=== PATIENT | female | born 1960 | race African-American/Black ===

== ENCOUNTER 2017-10-27 04:00 | Emergency (ER) | payer MEDICAID ==
[~2017-10-27] VITALS: Ht 162.6 cm; Wt 46.2 kg
[~2017-10-27 04:00] MED LIST: CEFD300C37 PO; DOXY100T PO; FERR325T5 PO; FOLI-17 PO; GABA300C10 PO; GLIP5TAB10 PO; GUAI-106 PO; INSU100I13 SQ-INSULIN; LISI2.5T PO; METF500T4 PO; OMEP-110 PO; OMEP20CA14 PO
[2017-10-27] MEDS ORDERED: DIPHENHYDRAMINE 50 MG/ML, 1ML IM ONE (05:00)
[2017-10-27] MEDS ORDERED: METOCLOPRAMIDE 10MG TABLET PO ONE (05:00)
[2017-10-27] MEDS ORDERED: METOCLOPRAMIDE 10MG TABLET ONE (05:06)
[2017-10-27] MEDS ORDERED: DIPHENHYDRAMINE 50 MG/ML, 1ML ONE (05:06)
[2017-10-27 06:42] VITALS: BP 112/86
== END 2017-10-27 07:11 | disposition home or self-care (01) ==
LOC: ED 05:11
DX: R51 Headache (principal); H53.149 Visual discomfort, unspecified; F17.200 Nicotine dependence, unspecified, uncomplicated; Z85.038 Personal history of other malignant neoplasm of large intestine; Z85.43 Personal history of malignant neoplasm of ovary
CPT/HCPCS: 70450; 96372; 99284; J1200

== ENCOUNTER 2018-05-10 08:17 | Emergency (ER) | payer MEDICAID ==
[~2018-05-10] VITALS: Ht 165.1 cm; Wt 42.8 kg
[~2018-05-10 08:17] MED LIST changes: +METF500T17 PO; -METF500T4 PO
[2018-05-10] MEDS ORDERED: ONDANSETRON 2MG/ML, 2ML ONE (08:51)
[2018-05-10] MEDS ORDERED: FAMOTIDINE 20 MG/2 ML ONE (08:52)
[2018-05-10 09:43] LABS: ALBUMIN 4.2 g/dL (3.4-5.0); ANION GAP 12 mmol/L (5-15); CHLORIDE 98 mmol/L (98-107)
[2018-05-10 09:46] LABS: MEAN CORPUSCULAR HEMOGLOBIN 24.6 pg (27.0-34.8); MEAN CORPUSCULAR HGB CONC 32.7 g/dL (32.4-35.8); MEAN CORPUSCULAR VOLUME 75.4 fL (80-100); MEAN PLATELET VOLUME 8.7 fL (7.4-10.4); PLATELET COUNT 262 x10^3/uL (130-400); RED BLOOD COUNT 5.75 x10^6/uL (3.82-5.3); RED CELL DISTRIBUTION WIDTH 14.4 % (9.6-15.2)
[2018-05-10 09:48] LABS: BASOPHILS # (AUTO) 0.03 x10^3/uL (0-0.1); BASOPHILS % (AUTO) 0 % (0-1); EOSINOPHILS # (AUTO) 0.03 x10^3/uL (0-0.4); EOSINOPHILS % (AUTO) 1 % (1-7); LYMPHOCYTES # (AUTO) 1.79 x10^3/uL (1-3.4); LYMPHOCYTES % (AUTO) 27 % (22-44); MD SCAN; MONOCYTES # (AUTO) 0.58 x10^3/uL (0.2-0.8); MONOCYTES % (AUTO) 9 % (2-9); NEUTROPHILS # (AUTO) 4.27 x10^3/uL (1.8-6.8); NEUTROPHILS % (AUTO) 64 % (42-75)
[2018-05-10 09:49] LABS: ALANINE AMINOTRANSFERASE 29 U/L (12-78); ALKALINE PHOSPHATASE 72 U/L (45-117); CREATININE 0.91 mg/dL (0.55-1.02); TOTAL PROTEIN 8.6 g/dL (6.4-8.2); TROPONIN I < 0.015 ng/mL (0.000-0.045)
[2018-05-10] MEDS ORDERED: SODIUM CHLORIDE 0.9% 1,000ML IVBOLUS ONE (10:00)
[2018-05-10] MEDS ORDERED: SODIUM CHLORIDE FLUSH 10ML SYR IVF ONE (10:00)
[2018-05-10] MEDS ORDERED: FAMOTIDINE 20 MG/2 ML IVP ONE (10:00)
[2018-05-10] MEDS ORDERED: ONDANSETRON 2MG/ML, 2ML IVPush ONE (10:00)
[2018-05-10] MEDS ORDERED: MAALOX/HYOSCYAMINE/LIDOCAINE 45 ML BTL ONE (10:41)
[2018-05-10 10:57] LABS: MICROSCOPIC INDICATED
[2018-05-10] MEDS ORDERED: MAALOX/HYOSCYAMINE/LIDOCAINE 45 ML BTL PO ONE (11:00)
[2018-05-10 11:11] LABS: CULTURE INDICATED? NO
[2018-05-10] MEDS ORDERED: OMNIPAQUE 350 MG/ML, 100ML BOTTLE ONE (11:50)
[2018-05-10 12:02] VITALS: BP 111/68
== END 2018-05-10 12:58 | disposition home or self-care (01) ==
LOC: ED 09:10
DX: K29.00 Acute gastritis without bleeding (principal); I10 Essential (primary) hypertension; E11.9 Type 2 diabetes mellitus without complications
CPT/HCPCS: 36415; 74022; 74177; 80053; 81001; 83690; 84484; 85025; 93005; 96361; 96374; 96375; 99285; J2405; J7030; Q9967; S0028

== ENCOUNTER 2019-01-22 09:52 | Observation (INO) | payer MEDICAID ==
[~2019-01-22] VITALS: Ht 162.6 cm; Wt 48.5 kg
[2019-01-22] MEDS ORDERED: SUMA100T4 PO (10:24)
[2019-01-22] MEDS ORDERED: CITA20TA6 PO (10:24)
[2019-01-22] MEDS ORDERED: ASPI-496 PO (10:24)
[2019-01-22] MEDS ORDERED: GLIP5TAB10 PO (10:24)
--- NOTE | 2019-01-22 10:24 | NUR ---
PT C/O CP DESCRIBED A PRESSURE SINCE SUNDAY WITH ONE EPISODE OF VOMTTING ON SUNDAY. PT DENIES NAUSEA NOW AND CP IS BETTER COMPARED TO SUNDAY. PAIN INCREASES WITH BREATHING. PT DENIES RECENT TRAVEL. PT ON MONITOR. WAITING FOR MD ORDERS.
[2019-01-22] MEDS ORDERED: ASPIRIN 81 MG TABLET CHEW ONE (10:29)
[2019-01-22] MEDS ORDERED: ASPIRIN 81 MG TABLET CHEW PO ONE (10:30)
[2019-01-22 11:30] LABS: MEAN CORPUSCULAR HEMOGLOBIN 24.2 pg (27.0-34.8); MEAN CORPUSCULAR HGB CONC 30.9 g/dL (32.4-35.8); MEAN CORPUSCULAR VOLUME 78.4 fL (80-100); MEAN PLATELET VOLUME 8.6 fL (7.4-10.4); PLATELET COUNT 234 x10^3/uL (130-400); RED BLOOD COUNT 5.08 x10^6/uL (3.82-5.3); RED CELL DISTRIBUTION WIDTH 15.9 % (9.6-15.2)
[2019-01-22 11:31] LABS: ALBUMIN 3.5 g/dL (3.4-5.0); ANION GAP 4 mmol/L (5-15); CALCIUM 9.5 mg/dL (8.5-10.1); CHLORIDE 108 mmol/L (98-107)
--- NOTE | 2019-01-22 11:36 | NUR ---
3 P'S ADDRESSED. PT ON TELEPHONE IN THE ROOM. DENIES ANY NEEDS AT THIS TIME. WAITING FOR LAB RESULTS.
[2019-01-22 11:37] LABS: ALANINE AMINOTRANSFERASE 33 U/L (12-78); ALKALINE PHOSPHATASE 56 U/L (45-117); BILIRUBIN,TOTAL 0.3 mg/dL (0.2-1.0); TOTAL PROTEIN 7.1 g/dL (6.4-8.2); TROPONIN I < 0.015 ng/mL (0.000-0.045)
[2019-01-22 11:39] LABS: MD YES
[2019-01-22 11:41] LABS: <PLATELET ESTIMATE> ADEQUATE; ANISOCYTOSIS 1+; EOS#(MANUAL) 0.16 x10^3/uL (0.0-0.4); EOS% (MANUAL) 3 % (1-7); HYPOCHROMIA 1+; LARGE PLATELETS 1+; LYMPH#(MANUAL) 1.98 x10^3/uL (1-3.4); LYMPHS% (MANUAL) 38 % (22-44); MICROCYTOSIS 1+; MONOS#(MANUAL) 0.26 x10^3/uL (0.3-2.7); MONOS% (MANUAL) 5 % (2-9); SEG#(MANUAL) 2.81 x10^3/uL (1.8-6.8); SEGS% (MANUAL) 54 % (42-75); TARGET CELLS 1+
--- NOTE | 2019-01-22 11:43 | NUR ---
CHART UP FOR MD RECHECK. PT AWARE.
--- NOTE | 2019-01-22 12:29 | NUR ---
HOSPITLIST AT BEDSIDE. WAITING FOR BED.
[2019-01-22] MEDS ORDERED: SODIUM CHLORIDE FLUSH 10ML SYR IVF PRN (12:30)
[2019-01-22] MEDS ORDERED: SODIUM CHLORIDE FLUSH 10ML SYR IVF ONE (12:30)
[2019-01-22] MEDS ORDERED: FAMO-79 PO (12:48)
[2019-01-22] MEDS ORDERED: ACETAMINOPHEN 325 MG TABLET PO PRN (13:00)
[2019-01-22] MEDS ORDERED: NITROGLYCERIN 0.4 MG/SPRAY SL PRN (13:00)
[2019-01-22] MEDS ORDERED: morphine SULFATE 10 MG/ML, 1ML IV PRN (13:00)
[2019-01-22] MEDS ORDERED: DEXTROSE 50%, 50ML SYRINGE IVPush PRN (13:00)
[2019-01-22] MEDS ORDERED: BACLOFEN 10 MG TABLET PO PRN (13:00)
[2019-01-22] MEDS ORDERED: DEXTROSE 4 GM TAB.CHEW PO PRN (13:00)
[2019-01-22] MEDS ORDERED: GLUCAGON 1 MG IM PRN (13:00)
[2019-01-22] MEDS ORDERED: NITROGLYCERIN 0.4 MG BOTTLE (25 TABS) SL PRN (13:00)
[2019-01-22] MEDS ORDERED: LIDODERM 5% PATCH TD SCH (13:00)
[2019-01-22] MEDS ORDERED: LIDODERM 5% PATCH TD ONE (13:04)
--- NOTE | 2019-01-22 13:24 | NUR ---
PT MEDICATED PER MD ORDER WITH LIDOCAUINE PATCH. PT UPDATED ON POC AND POSSIBLE LONG STAY IN THE ER DUE TO TELE BEING FULL.
[2019-01-22 13:51] LABS: CHOL/HDL RATIO 2.3
--- NOTE | 2019-01-22 14:24 | NUR ---
HOSPITAL BED REQUESTED. PT UPDATED AGAIN ON POC. VSS
--- NOTE | 2019-01-22 14:36 | NUR ---
PT PLACED ON HOSPITAL BED. STILL WAITING FOR ROOM ON TELE. PT REPORTS SOME PAIN RELIEF WITH LIDODERM PATCH.
[2019-01-22 15:25] VITALS: BP 127/75
[2019-01-22] MEDS ORDERED: MAALOX/HYOSCYAMINE/LIDOCAINE 45 ML BTL PO PRN (16:00)
[2019-01-22] MEDS ORDERED: SUMATRIPTAN 100 MG TABLET PO PRN (16:00)
[2019-01-22] MEDS: INSULIN LISPRO 100 UNITS/ML, PEN SQ-INSULIN SCH ×2 (16:45→22:34)
[2019-01-22] MEDS: GABAPENTIN 300 MG CAPSULE PO SCH ×2 (16:46→21:40)
[2019-01-22] MEDS: PANTOPRAZOLE 20MG TABLET PO SCH (16:46)
[2019-01-22 18:32] LABS: TROPONIN I < 0.015 ng/mL (0.000-0.045)
[2019-01-22 20:22] VITALS: BP 126/80
[2019-01-22] MEDS ORDERED: GABAPENTIN 300 MG CAPSULE PO PRN (21:00)
[2019-01-22] MEDS: SODIUM CHLORIDE FLUSH 10ML SYR IVF SCH ×2 (21:00)
[2019-01-23 01:20] LABS: TROPONIN I < 0.015 ng/mL (0.000-0.045)
[2019-01-23 01:48] VITALS: BP 139/87
[2019-01-23] MEDS ORDERED: ASPIRIN 325 MG TABLET EC PO SCH (06:00)
[2019-01-23] MEDS: PANTOPRAZOLE 20MG TABLET PO SCH (06:00)
[2019-01-23 06:10] LABS: ANION GAP 5 mmol/L (5-15); CALCIUM 9.2 mg/dL (8.5-10.1); CHLORIDE 107 mmol/L (98-107)
[2019-01-23 06:13] LABS: CREATININE 0.66 mg/dL (0.55-1.02)
[2019-01-23] MEDS: GABAPENTIN 300 MG CAPSULE PO SCH (07:55)
[2019-01-23] MEDS: SODIUM CHLORIDE FLUSH 10ML SYR IVF SCH ×2 (07:56)
[2019-01-23 08:03] VITALS: BP 146/69
[2019-01-23] MEDS: INSULIN LISPRO 100 UNITS/ML, PEN SQ-INSULIN SCH ×2 (08:44→11:47)
[2019-01-23] MEDS ORDERED: LISINOPRIL 5 MG TABLET PO SCH (09:00)
[2019-01-23] MEDS ORDERED: FOLIC ACID 1 MG TABLET PO SCH (09:00)
[2019-01-23] MEDS ORDERED: CITALOPRAM 20 MG TABLET PO SCH (09:00)
[2019-01-23] MEDS ORDERED: FERROUS SULFATE 325 MG TABLET PO SCH (09:00)
[2019-01-23] MEDS ORDERED: POTASSIUM CHLORIDE 20 MEQ TAB.ER.PRT PO ONE (09:30)
== END 2019-01-23 12:35 | disposition home or self-care (01) ==
LOC: ED 12:33 → EDIP 12:36 → ED 12:38 → 5SO 15:27 → DCLOUNGE 01-23 12:34
PROVIDERS: ADMIT Hospitalist; ATTEND Hospitalist
DX: R07.89 Other chest pain (principal); I10 Essential (primary) hypertension; E11.9 Type 2 diabetes mellitus without complications; R00.2 Palpitations; R05 Cough; F17.210 Nicotine dependence, cigarettes, uncomplicated; Z85.89 Personal history of malignant neoplasm of other organs and systems; Z85.038 Personal history of other malignant neoplasm of large intestine; Z85.43 Personal history of malignant neoplasm of ovary; Z79.82 Long term (current) use of aspirin; Z79.84 Long term (current) use of oral hypoglycemic drugs; Z79.899 Other long term (current) drug therapy; Z90.49 Acquired absence of other specified parts of digestive tract; Z90.710 Acquired absence of both cervix and uterus
CPT/HCPCS: 36415; 71045; 80048; 80053; 80061; 82962; 83690; 83880; 84145; 84443; 84484; 85025; 93005; 96372; 99284; G0378; J1815

== ENCOUNTER → 2019-05-06 | Outpatient (CLI) | payer MEDICAID ==
[~2019-05-06] MED LIST changes: +ASPI-496 PO; +CITA20TA6 PO; +FAMO-79 PO; +REGADENOSON 0.4 MG/5 ML SYRINGE ONE; +SUMA100T4 PO
== END | disposition home or self-care (01) ==
LOC: CFH 10:37
PROVIDERS: ATTEND Internal Medicine Cardiovascular Disease
DX: J90 Pleural effusion, not elsewhere classified (principal); I35.1 Nonrheumatic aortic (valve) insufficiency; I10 Essential (primary) hypertension; E11.9 Type 2 diabetes mellitus without complications; Z85.038 Personal history of other malignant neoplasm of large intestine; Z85.43 Personal history of malignant neoplasm of ovary; Z87.891 Personal history of nicotine dependence; Z83.3 Family history of diabetes mellitus; Z80.3 Family history of malignant neoplasm of breast; Z82.3 Family history of stroke; Z88.8 Allergy status to other drugs, medicaments and biological substances
CPT/HCPCS: 78452; 93017; 93306; A9502; J2785